=== PATIENT | female | born 1965 | race Asian ===

== ENCOUNTER 2019-03-20 11:54 | Emergency (ER) | payer SELFPAY ==
[~2019-03-20] VITALS: Ht 167.6 cm; Wt 62.6 kg
[2019-03-20 12:00] VITALS: BP 123/74
--- NOTE | 2019-03-20 12:30 | NUR ---
PT ARRIVED TO ED WITH DAUGHTER C/O CHEST PAIN X YESTERDAY. RATES PAIN 2/10 AND DESCRIBES IT SHARP PAIN. LUNG SOUNDS CLEAR ALL THOUGHOUT. HEART SOUNDS S1S2 PRESENT. NO EDEMA PRESENT. NO DISTRESS NOTED. PT STATES SHE TOOK HEBREW MED FOR THE PAIN. VSS. SPO2 97% RA. A & O X4. NKA.
[2019-03-20 12:47] LABS: BASOPHILS % (AUTO) 0.4 % (0.0-2.0); EOSINOPHILS # (AUTO) 0.2 K/uL (0-0.4); EOSINOPHILS % (AUTO) 3.3 % (0.0-4.0); HEMATOCRIT 42.5 % (36-48); HEMOGLOBIN 14.3 g/dL (12.0-16.0); LYMPHOCYTES # (AUTO) 2.5 K/uL (2.5-16.5); LYMPHOCYTES % (AUTO) 37.6 % (20.5-51.1); MEAN CORPUSCULAR HEMOGLOBIN 30 pg (27-31); MEAN CORPUSCULAR HGB CONC 34 g/dL (33-37); MEAN CORPUSCULAR VOLUME 89.7 fL (80-94); MONOCYTES # (AUTO) 0.4 K/uL (0.8-1.0); MONOCYTES % (AUTO) 6.1 % (1.7-9.3); NEUTROPHILS # (AUTO) 3.5 K/uL (1.8-7.7); NEUTROPHILS % (AUTO) 52.6 % (42.2-75.2); PLATELET COUNT (AUTO) 224 K/uL (140-450); RED BLOOD CELL COUNT(AUTO) 4.73 MIL/uL (4.20-5.40); RED CELL DISTRIBUTION WIDTH 12.7 % (11.6-13.7); WHITE BLOOD COUNT (AUTO) 6.6 K/uL (4.8-10.8)
[2019-03-20 13:11] LABS: ANION GAP 14.2 (8-16); CREATININE 0.7 mg/dL (0.6-1.3); POTASSIUM 4.2 mmol/L (3.5-5.1)
[2019-03-20 13:18] LABS: ALBUMIN 4.1 g/dL (3.4-5.0); TOTAL BILIRUBIN 0.4 mg/dL (0.0-1.0)
[2019-03-20] MEDS ORDERED: ACETAMINOPHEN 325 MG TAB PO ONE (13:25)
[2019-03-20 14:21] VITALS: BP 123/74
--- NOTE | 2019-03-20 14:21 | NUR ---
Patient discharged with v/s stable. Written and verbal after care instructions given and explained. Patient verbalized understanding. Ambulatory with steady gait. All questions addressed prior to discharge. Advised to follow up with PMD.
== END 2019-03-20 14:21 | disposition home or self-care (01) ==
LOC: MED 11:54
DX: R07.9 Chest pain, unspecified (principal); Z88.0 Allergy status to penicillin
CPT/HCPCS: 36415; 71045; 80053; 83880; 84484; 85025; 93005; 99284; Q0092